=== PATIENT | male | born 2005 | race Two or more races ===

== ENCOUNTER 2024-04-05 19:47 | Emergency (ER) | payer MEDICAID, OTHER ==
[~2024-04-05] VITALS: Ht 170.2 cm; Wt 92.7 kg
[2024-04-05] MEDS: IBUPROFEN 800 MG TAB PO ONE (21:44)
[2024-04-05 21:45] VITALS: BP 116/61; TEMP 97.8
[2024-04-05 21:47] VITALS: PULSE 79; RESP 20; O2SAT 97
[2024-04-05] MEDS ORDERED: IBUP-1455 PO (22:18)
[2024-04-05] MEDS ORDERED: CYCL-839 PO (22:18)
== END 2024-04-05 22:51 | disposition home or self-care (01) ==
LOC: ER 19:47
DX: M25.532 Pain in left wrist (principal); M25.572 Pain in left ankle and joints of left foot; M54.2 Cervicalgia; V43.92XA Unspecified car occupant injured in collision with other type car in traffic accident, initial encounter; Y93.89 Activity, other specified; Y92.89 Other specified places as the place of occurrence of the external cause; Y99.8 Other external cause status
CPT/HCPCS: 73090; 73110